=== PATIENT | female | born 1960 | race Caucasian/White ===

== ENCOUNTER 2018-11-08 05:26 | Emergency (ER) | payer OTHER, SELFPAY ==
[2018-11-08 05:35] VITALS: BP 152/82; PULSE 97; RESP 18; TEMP 36.2; O2SAT 98
--- NOTE | 2018-11-08 05:37 | DI.RAD.S_ITS ---
PROCEDURE: XR CHEST 1V INDICATIONS: pacemaker malfunction TECHNIQUE: One view of the chest was acquired. COMPARISON: [facility], CR, XR CHEST 2 VIEWS, 03/02/2018, 13:40. FINDINGS: Surgical changes and devices: Cardiac pacer is unchanged. Lungs and pleura: Lungs are clear. No pleural effusions or pneumothorax. Mediastinum: Mediastinal contours appear normal. Heart size is enlarged, as before. Bones and chest wall: No suspicious bony lesions. Overlying soft tissues appear unremarkable. IMPRESSION: No acute cardiopulmonary findings. Dictated by: Katerina Vuong M.D. on 11/08/2018 at 9:00 Approved by: Katerina Vuong M.D. on 11/08/2018 at 9:00
--- NOTE | 2018-11-08 05:43 | ED_ITS ---
HPI - Arrhythmia/Palpitations General Chief Complaint: Arrhythmia/Palpitations Stated Complaint: HAS PACEMAKER, HEART IS RACING Time Seen by Provider: 11/08/18 05:30 Source: patient Mode of arrival: ambulatory Limitations: no limitations History of Present Illness HPI narrative: 50-year-old female nonsmoker with history of bradycardia requiring a pacemaker presents with a chief complaint of heart racing with some anxiety and headache this morning. She states her heart rate got as high as 106 at home. She had a routine scheduled pacemaker check on the and they noted a tachyarrhythmia and has scheduled her for an upcoming appointment. This is the 2nd occurrence she has had an a week. She denies chest pain she is not dizzy nor weak or lightheaded. She denies any syncope or trauma. MD complaint: rapid heart beat and heart racing Onset (ago): hour(s) Duration: constant Severity: moderate Context: occurred during rest Arrhythmia history: pacemaker Associated symptoms: nausea and anxiety Review of Systems Constitutional Denies chills, Denies fever(s), Denies lethargy and Denies weakness Eyes Denies change in vision, Denies eye discharge, Denies irritation and Denies loss of vision ENT Ears, Nose, Mouth, and Throat: Denies change in voice, Denies neck pain and Denies sore throat Cardiovascular Denies chest pain, Denies irregular heart rhythm, Denies lightheadedness, Reports palpitations, Denies dyspnea, Denies dyspnea on exertion and Denies orthopnea Respiratory Denies cough, Denies dyspnea, Denies dyspnea on exertion and Denies wheezing Gastrointestinal Gastrointestinal: Denies abdominal pain, Denies change in bowel habits, Denies diarrhea, Denies nausea and Denies vomiting Genitourinary Denies hematuria, Denies flank pain, Denies urinary incontinence and Denies urinary urgency Musculoskeletal Denies neck pain Integumentary/Breasts Denies pruritus, Denies erythema, Denies rash and Denies wounds Neurologic Denies confusion, Denies loss of vision and Denies weakness Psychiatric Denies anxiety, Denies confusion, Denies depression, Denies homicidal ideation and Denies suicidal ideation Endocrine Reports palpitations Hematologic/Lymphatic Denies easy bruising Allergic/Immunologic Denies wheezing PFSH Social History Smoking Status: Never smoker Social History Smoking Status: Never smoker Exam Narrative Exam Narrative: GENERAL: A 58-year-old female, resting comfortably but obviously anxious HEAD: Atraumatic. Normocephalic. No temporal or scalp tenderness. EYES: Pupils equal round and reactive. Extraocular motions intact. No scleral icterus. No injection or drainage. ENT: Nose without bleeding, purulent drainage or septal hematoma. Throat without erythema, tonsillar hypertrophy or exudate. Uvula midline. Airway patent. NECK: Trachea midline. No JVD or lymphadenopathy. Supple, nontender, no meningeal signs. CARDIOVASCULAR: Regular rate and rhythm without murmurs, gallops, or rubs. RESPIRATORY: Clear to auscultation. Breath sounds equal bilaterally. No wheezes, rales, or rhonchi. GASTROINTESTINAL: Abdomen soft, non-tender, nondistended. No hepato- splenomegaly, or palpable masses. No guarding. EXTREMITIES: No clubbing, cyanosis, or edema. No joint tenderness, effusion, or edema noted. BACK: Nontender without deformity or crepitance. No flank tenderness. NEURO: AOx3. SKIN: No rash or erythema. Initial Vital Signs Initial Vital Signs: Vital Signs Temperature 97.2 F L 11/08/18 05:35 Pulse Rate 97 H 11/08/18 05:35 Respiratory Rate 18 11/08/18 05:35 Blood Pressure 152/82 H 11/08/18 05:35 Pulse Oximetry 98 11/08/18 05:35 Course Course Narrative: Pacer has been affectively interrogated and staff at [facility] has called and stated everything looks fine and well and pacer is functioning appropriately. Patient is feeling a bit anxious and still noting palpitations therefore Ativan has been ordered. Cardiology at [facility] consulted (Rich) whom is reviewing chart and will call back briefly Orders Ordered: ED Orders 11/08/18 05:37 XR chest 1V Stat EKG-12 Lead Stat 11/08/18 05:45 Basic Metabolic Panel Stat Complete Blood Count AUTO DIFF Stat Magnesium Stat Thyroid Stimulating Hormone Stat Troponin & CK Cardiac Panel Stat Sodium Chloride (Normal Saline 0.9%) 1,000 mls @ 150 mls/hr IV CONT DESHAWN Last Admin: 11/08/18 06:36 Dose: 150 mls/hr Discontinued Medications Lorazepam (Ativan) 0.5 mg IV NOW ONE Stop: 11/08/18 06:43 Last Admin: 11/08/18 06:50 Dose: 0.5 mg Consultations Consultation #1: Dr. Villanueva called back. Requests Atenolol be increased to 50mg daily and office will call tomorrow Vital Signs - 8 hr 11/08/18 05:35 11/08/18 06:20 11/08/18 06:47 Temperature 97.2 F L Pulse Rate 97 H 98 H 91 H Respiratory Rate 18 23 20 Blood Pressure 152/82 H Blood Pressure [Right Arm] 151/75 H 135/94 H Pulse Oximetry 98 100 95 MDM - Arrhythmia/Palpitations Differential Diagnosis Differential diagnosis: Likely palpitations and anxiety Lab Data Result diagrams: 11/08/18 05:45 11/08/18 05:45 Lab Results 11/08/18 11/08/18 11/08/18 Range/Units 05:45 05:45 05:45 WBC 8.7 (4.5-11.0) X10^3/uL RBC 4.66 (4.0-5.2) X10^6/uL Hgb 14.4 (12.0-16.0) g/dL Hct 41.4 (36-46) % MCV 89.0 (80-100) fL MCH 30.9 (26-34) PG MCHC 34.7 (30-36) % RDW 13.3 (11.6-14.8) % Plt Count 335 (150-400) X10^3/uL Neut % (Auto) 62.2 (50-75) % Lymph % (Auto) 29.1 (25-40) % Crenshaw % (Auto) 6.7 (3-14) % Eos % (Auto) 1.5 L (2-4) % Baso % (Auto) 0.5 (0-2) % Neut # (Auto) 5400 (4347-9107) /uL Lymph # (Auto) 2500 (2245-5472) /uL Crenshaw # (Auto) 600 (0-900) /uL Eos # (Auto) 100 (0-450) /uL Baso # (Auto) 0 (0-100) /uL Sodium 139 (137-145) mmol/L Potassium 3.9 (3.4-5.1) mmol/L Chloride 102 (98-107) mmol/L Carbon Dioxide 28 (22-32) mmol/L BUN 14 (7-17) mg/dL Creatinine 1.10 H (0.52-1.04) mg/dL Estimated GFR 51.0 L (>60) mL/min BUN/Creatinine Ratio 12.7 (6-22) Glucose 115 H (70-100) mg/dL Calcium 10.6 H (8.4-10.2) mg/dL Magnesium 2.0 (1.6-2.3) mg/dL Total Creatine Kinase 67 (30-135) U/L CK-MB (CK-2) TNP CK-MB (CK-2) Rel Index TNP Troponin I < 0.012 (0.01-0.034) ng/mL TSH 2.13 (0.47-4.68) uIU/mL ECG Data Attestation: I personally reviewed and interpreted this ECG as follows: Prior ECG tracings: available for review Interpretation: paced rhythm at 90 without obvious ischemia or ectopy Discharge Plan Departure Patient Disposition: Home Clinical Impression: Ventricular tachycardia Instructions: Arrhythmias Activity Restrictions/Additional Instructions: *You have been diagnosed with [ palpitations ] *What to do: *Please increase Atenolol from 25mg to 50mg daily (per Dr. Villanueva), otherwise take medications as directed *You should expect a call from cardiology tomorrow *Return to ER if you should have any new, worsening or concerning symptoms Referrals: Jacobo Chen MD [Primary Care Provider] -
[2018-11-08 05:56] LABS: Add Manual Diff / Slide Review NO; Basophils Absolute Auto 0 /uL (0-100); Basophils Percent Auto 0.5 % (0-2); Eosinophils Absolute Auto 100 /uL (0-450); Eosinophils Percent Auto 1.5 % (2-4); Hematocrit 41.4 % (36-46); Hemoglobin 14.4 g/dL (12.0-16.0); Lymphocytes Absolute Auto 2500 /uL (1100-4500); Lymphocytes Percent Auto 29.1 % (25-40); Mean Corpuscular HGB Conc 34.7 % (30-36); Mean Corpuscular Hemoglobin 30.9 PG (26-34); Monocytes Absolute Auto 600 /uL (0-900); Monocytes Percent Auto 6.7 % (3-14); Neutrophils Absolute Auto 5400 /uL (1500-7000); Neutrophils Percent Auto 62.2 % (50-75); Platelet Count 335 X10^3/uL (150-400); Red Blood Cell Count 4.66 X10^6/uL (4.0-5.2); Red Cell Distribution Width 13.3 % (11.6-14.8); White Blood Cell Count 8.7 X10^3/uL (4.5-11.0)
[2018-11-08 06:04] LABS: BUN Creatinine Ratio 12.7 (6-22); Blood Urea Nitrogen 14 mg/dL (7-17); Calcium 10.6 mg/dL (8.4-10.2); Carbon Dioxide 28 mmol/L (22-32); Chloride 102 mmol/L (98-107); Creatine Kinase 67 U/L (30-135); Glucose 115 mg/dL (70-100); HEMOLYSIS 28 (0-50); Potassium 3.9 mmol/L (3.4-5.1); Sodium 139 mmol/L (137-145)
[2018-11-08 06:16] LABS: Troponin I < 0.012 ng/mL (0.01-0.034)
--- NOTE | 2018-11-08 06:18 | PC.NURSE ---
Pacemaker interrogated with [place] device with success. Report currently being received via Fax. Dr Rayo aware.
[2018-11-08 06:20] VITALS: BP 151/75; PULSE 98; RESP 23; O2SAT 100
--- NOTE | 2018-11-08 06:25 | PC.NURSE ---
Phone call received from [facility] who stated that she's reviewed the pacemaker interrogation transmission and that it appears to be working fine, with no new recorded events.
[2018-11-08] MEDS: SODIUM CHLORIDE 0.9% 1,000 ML 150 ML IV (06:36)
[2018-11-08 06:47] VITALS: BP 135/94; PULSE 91; RESP 20; O2SAT 95
[2018-11-08] MEDS: LORazepam 2 MG/ML SYRINGE 0.5 MG IV (06:50)
[2018-11-08 06:54] LABS: Thyroid Stimulating Hormone 2.13 uIU/mL (0.47-4.68)
--- NOTE | 2018-11-08 06:55 | PC.NURSE ---
0.5mg ativan given per order from Dr Rayo for tearfulness and complaints of anxiety. Care reviewed with pt and emotional support given.
[2018-11-08 07:15] VITALS: BP 132/83; PULSE 99; RESP 18; O2SAT 97
--- NOTE | 2018-11-23 23:21 | PC.NURSE ---
Late Entry NS stop time 0700. 1 liter infused.
== END 2018-11-08 07:33 | disposition home or self-care (01) ==
PROVIDERS: Emergency Provider Emergency Medicine
DX: I47.2 Ventricular tachycardia (principal)
CPT/HCPCS: 36591; 71045; 80048; 82550; 83735; 84443; 84484; 85025; 93005; 93010; 96374; 99282; 99285; J2060

== ENCOUNTER → 2020-10-16 14:15 | Outpatient (CLI) | payer OTHER, SELFPAY ==
[2020-10-16 16:11] LABS: COVID19 -Nasal RAPID Negative (Negative)
== END ==
PROVIDERS: PCP Family Medicine; Visit Provider Physical Medicine & Rehabilitation
DX: Z20.822 Contact with and (suspected) exposure to COVID-19 (principal)
CPT/HCPCS: 87635; C9803

== ENCOUNTER 2020-10-17 12:40 | Outpatient (CLI) | payer OTHER, SELFPAY ==
[2020-10-17] VITALS (7 sets, daily range): BP systolic 76–118; BP diastolic 50–72; PULSE 69–75; RESP 12–18; TEMP 36.8; O2SAT 96–100
--- NOTE | 2020-10-17 12:41 | DI.RAD.S_ITS ---
PROCEDURE: PAIN L/SI FACET INJ/BLK 1STL INDICATIONS: SPONDYLOSIS COMPARISON: [facility], RG, XR LUMBOSACRAL SPINE 2-3 VIEWS, 09/06/2020, 13:28. FINDINGS: Fluoroscopic spot filming was performed to verify placement of spinal needles at the L2-L3, L4-L5, and L5-S1 level(s), as labeled on the films. Appropriate location(s) of the needle tip(s) was confirmed by injection of iodinated contrast. IMPRESSION: Intraprocedural examination within normal limits. Dictated by: Christopher Garland M.D. on 10/17/2020 at 14:07 Approved by: Christopher Garland M.D. on 10/17/2020 at 14:08
[2020-10-17] MEDS: MIDAZOLAM 5 MG/5 ML VIAL IV (13:55)
[2020-10-17] MEDS: fentaNYL 100 MCG/2 ML INJ 50 MCG IV (13:55)
[2020-10-17] MEDS: BUPIVACAINE 0.5% (PF) VIAL 2 ML INJ (14:04)
[2020-10-17] MEDS: IOPAMIDOL 15 ML VIAL 3 ML INJ (14:04)
[2020-10-17] MEDS: BETAMETHASONE 30 MG/5 ML MDV 12 MG INJ (14:05)
--- NOTE | 2020-10-17 14:09 | P.PCN_ITS ---
Date/Time/Diagnoses Date of procedure: 10/17/20 Time of procedure: 14:09 Pre-procedure diagnosis: 1. FACET ARTHROPATHY, 2. AXIAL LBP, 3. MULTILEVEL DDD Post-procedure diagnosis: same Procedure Notes Procedure: 1. FLUOROSCOPICALLY GUIDED CONTRAST CONTROLLED FACET JOINT INJECTIONS RIGHT L2/3, L4/5, L5/S1 Indications: The patient is referred by for treatment of Axial LBP Physician: Jose C Thompson Total Fluoroscopy time (seconds): 10 Total sedation minutes: 10 Complications: none Procedure in detail & Post-procedure care: FINDINGS Multilevel Facet Arthropathy with Clinically significant axial LBP DESCRIPTION OF PROCEDURE Fluoroscopically guided, contrast-controlled right L2/3, L4/5, L5/S1 facet joint injections. Following review of allergy and review of potential side effects and complications, including, but not necessarily limited to, infection, allergic reaction, local tissue breakdown, stroke, temporary or permanent nerve injury, paralysis, and possible , the patient indicated that the patient understood and agreed to proceed. An informed consent document was signed by the patient, witnessed by a nurse, and placed in the patient's chart. Additionally, other treatment options including medications, modalities, and physical therapy were reviewed with the patient. After review of previous anaesthesic history and IV conscious sedation the fritz ent was deemed safe to proceed with today?s procedure with IV conscious sedation as ASA class II designation. Safety time-out was performed to confirm patient ID, procedure to be performed and site of procedure. IV sedation was accomplished with a combination of 2mg of Versed and 50mcg of Fentanyl was administered by the RN after DO order, titrated to patient comfort during the course of the procedure while the patient remained responsive to all verbal commands. In the prone position, following sterile prep and drape of the lumbar region, the posterior aspect of the right L2/3, L4/5, L5/S1 facet joints were identified fluoroscopically. The skin was anesthetized via a 25-gauge 1.5-inch needle with 1% lidocaine solution into the corresponding facet joints. At this point, a 22- gauge 3.5-inch spinal needle was atraumatically introduced and advanced under fluoroscopic guidance into the corresponding facet joints. Following negative aspiration, injections of approximately 0.2-cc of Isovue 200 confirmed interarticular placement without vascular uptake. Radiological data, including multiple fluoroscopic views of the lumbosacral spine, reveal a spinal needle at the right L2/3, L4/5, L5/S1 facet joints. Subsequent views show flow of contrast material both superiorly and inferiorly within the joint space without vascular or intrathecal uptake. At this point, a total of 0.5cc including a mixture of 0.25cc Marcaine and 0.25cc betamethasone was injected without complication into each of the corresponding facet joints. The procedure tolerated the procedure well without signs or symptoms of complications prior to transfer to the recovery area continued monitoring without incident. The patient was then transferred to the recovery area where they were observed for an appropriate period of time after the injection. The patient reported a VAS score of 7 prior to the procedure and a post-procedure VAS of 0. POST OP INSTRUCTIONS The patient was provided a Pain Log to continue to record their response to the target-specific procedure prior to follow-up visit with their referring physician. Additionally, specific post-injection care instructions and a contact number to our office were provided if concerns arise regarding possible complications associated with the procedure are suspected.
== END 2020-10-17 14:30 | disposition home or self-care (01) ==
PROVIDERS: PCP Family Medicine; Referring Provider Physical Medicine & Rehabilitation; Visit Provider Physical Medicine & Rehabilitation
DX: M47.816 Spondylosis without myelopathy or radiculopathy, lumbar region (principal); M47.817 Spondylosis without myelopathy or radiculopathy, lumbosacral region; M54.5 Low back pain; M51.36 Other intervertebral disc degeneration, lumbar region; M51.37 Other intervertebral disc degeneration, lumbosacral region
CPT/HCPCS: 64493; 64494; 64495; 99152; J0702; J2250; J3010

== ENCOUNTER 2022-11-03 11:16 | Emergency (ER) | payer OTHER, SELFPAY ==
[2022-11-03 11:23] VITALS: BP 137/79; PULSE 67; RESP 16; TEMP 36.6; O2SAT 94; BMI 38.3
[2022-11-03] MEDS: PROPARACAINE 0.5% OPHTH SOL 1 DROPS EYE-LEFT (12:20)
[2022-11-03] MEDS: FLUORESCEIN 1 MG STRIP EYE-BOTH (12:20)
--- NOTE | 2022-11-03 13:09 | ED_ITS ---
HPI - Skin/Abscess/Foreign Bdy <Pretty Penn, [facility] - Last Filed: 11/03/22 20:13> General Chief complaint: Skin/Abscess/Foreign Body Stated complaint: possible shingles per pt Time Seen by Provider: 11/03/22 12:09 History of Present Illness HPI narrative: This is a 62-year-old female with history of shingles on her face over her left eye with progression this week and concern for intra-ocular involvement. Patient has been on valacyclovir 1 g X times a day for 7 days, states that she received the shingles vaccination 2 days ago as well, but denies fever chills, denies neuro changes, denies vision changes, denies field cut, states that she feels poorly but she does not feel so bad that she needs stay in the hospital. She has lesions to the left side of her forehead above her eye and on the upper eyelid does not extend to the lower eye or face, patient denies any drooping of her face other than her upper eyelid due to the edema. She denies any motor changes, states that her vaccines are up-to-date, she received her shingles vaccine 2 days ago and denies that she started feeling worse afterwards. She states that she is felt pretty bad most of this time but some of the forehead lesions are starting to crust. She states that some of the eyelid involvement is new and that is why she came in for evaluation today. Related Data Home Medications Medication Instructions Recorded Confirmed acetaminophen 325 mg tablet 325 mg PO ONCE PRN 09/13/20 09/13/20 (Tylenol) apixaban 5 mg tablet (Eliquis) 5 mg PO BID 09/13/20 09/13/20 atenolol 50 mg tablet 50 mg PO DAILY 09/13/20 09/13/20 atorvastatin 80 mg tablet 80 mg PO DAILY 09/13/20 09/13/20 clonazepam 1 mg tablet 1 mg PO DAILY 09/13/20 09/13/20 diphenoxylate-atropine 2.5 1 tab PO DAILY 09/13/20 09/13/20 mg-0.025 mg tablet escitalopram oxalate 20 mg tablet 20 mg PO DAILY 09/13/20 09/13/20 folic acid 1 mg tablet 1 mg PO DAILY 09/13/20 09/13/20 hydrochlorothiazide 12.5 mg capsule 12.5 mg PO DAILY 09/13/20 09/13/20 hydrocodone 10 mg-acetaminophen tab PO TID PRN 09/13/20 09/13/20 325 mg tablet hydrocodone 7.5 mg-acetaminophen 1 tab PO BEDTIME PRN 09/13/20 09/13/20 325 mg tablet iron PO 09/13/20 lisinopril 10 mg tablet 10 mg PO DAILY 09/13/20 09/13/20 omeprazole 20 mg capsule,delayed 20 mg PO DAILY 09/13/20 09/13/20 release Previous Rx's Medication Instructions Recorded gabapentin 100 mg capsule 100 mg PO TID PRN pain #30 caps 11/03/22 hydrocodone 5 mg-acetaminophen 325 1 tab PO TID PRN pain #14 tabs 11/03/22 mg tablet mupirocin 2 % topical ointment 1 applic topical DAILY #15 grams 11/03/22 Allergies Allergy/AdvReac Type Severity Reaction Status Date / Time No Known Drug Allergies Allergy Verified 09/07/20 10:44 Review of Systems <ANTON Sagastume - Last Filed: 11/03/22 20:13> Review of Systems ROS Unobtainable: All systems reviewed & are unremarkable except as noted in HPI and below Patient History <ANTON Sagastume - Last Filed: 11/03/22 20:13> Medical History Cervical spondylosis with radiculopathy Depression Dextroscoliosis DJD (degenerative joint disease), thoracic Facet arthropathy, lumbar Lumbar foraminal stenosis Morbid obesity due to excess calories Surgical History H/O: hysterectomy History of colonoscopy Hx of heart surgery S/P placement of cardiac pacemaker Family History Father Diabetes mellitus CKD (chronic kidney disease) Social History Smoking Status: Never smoker alcohol intake: current Smoking Status: Never smoker alcohol intake frequency: 0-2 drinks per day Substance Use Type: does not use Exam <ANTON Sagastume - Last Filed: 11/03/22 20:13> Narrative Exam Narrative: Reviewed vitals signs and nursing notes. General: cooperative, comfortable, in no acute distress, well groomed HEENT: symmetrical facial expressions, moist mucous membranes, eyebrow raise bilaterally is equal, patient able to puff cheeks out, smile, frown, shrug shoulders, and swallow without deficit or unilateral abnormality. She has erythema and some lesions to the left upper eyelid, no discharge or crusting present to the eyelid Fluorescein exam is significant for mild lesions medial to the iris and does not involve the cornea, approximately 2 mm x 1 mm area of fluorescein uptake, this was also visualized by Dr. Saenz who performed an exam as well. Patient does not have any vision deficit or field cut, EOMI, symmetrical face expressions and neuro exam completed without any focal neuro deficit. Neuro: normal speech and cognition, A&O x3, ambulatory, clear speech Psych: mental status is grossly normal, congruent mood, normal affect, pleasant and cooperative Initial Vital Signs Initial Vital Signs: Vital Signs Temperature 97.8 F 11/03/22 11:23 Pulse Rate 67 11/03/22 11:23 Respiratory Rate 16 11/03/22 11:23 Blood Pressure 137/79 11/03/22 11:23 Pulse Oximetry 94 11/03/22 11:23 Oxygen Delivery Method Room Air 11/03/22 11:23 <Alanna Mcintosh DO - Last Filed: 11/11/22 08:08> Initial Vital Signs Initial Vital Signs: Vital Signs Temperature 97.8 F 11/03/22 11:23 Pulse Rate 67 11/03/22 11:23 Respiratory Rate 16 11/03/22 11:23 Blood Pressure 137/79 11/03/22 11:23 Pulse Oximetry 94 11/03/22 11:23 Oxygen Delivery Method Room Air 11/03/22 11:23 Course <ANTON Sagastume - Last Filed: 11/03/22 20:13> Orders Ordered: Discontinued Medications Acetaminophen (Acetaminophen 325 Mg Tablet) 650 mg PO NOW ONE Stop: 11/03/22 13:34 Last Admin: 11/03/22 13:49 Dose: 650 mg Documented By: NR Hydrocodone Bitart/Acetaminophen (Hydrocodone/Acet 5/325 Tablet) 1 tab PO NOW ONE Stop: 11/03/22 13:33 Last Admin: 11/03/22 13:47 Dose: 1 tab Documented By: NR Acyclovir (Acyclovir 200 Mg Capsule) 800 mg PO NOW ONE Stop: 11/03/22 13:28 Last Admin: 11/03/22 13:49 Dose: 800 mg Documented By: NR Erythromycin (Erythromycin Ophth 1 Gm Oint) 1 applic EYE-LEFT NOW ONE Stop: 11/03/22 13:29 Last Admin: 11/03/22 13:49 Dose: 1 applic Documented By: NR Fluorescein Sodium (Fluorescein 1 Mg Strip) 1 mg EYE-BOTH NOW ONE Stop: 11/03/22 12:10 Last Admin: 11/03/22 12:20 Dose: 1 mg Documented By: SCOT Gabapentin (Gabapentin 100 Mg Capsule) 100 mg PO NOW ONE Stop: 11/03/22 13:33 Last Admin: 11/03/22 13:48 Dose: 100 mg Documented By: NR Ketorolac Tromethamine (Ketorolac 30 Mg/Ml Vial) 15 mg IM NOW ONE Stop: 11/03/22 13:33 Last Admin: 11/03/22 13:56 Dose: Not Given Documented By: NR Proparacaine HCl (Proparacaine 0.5% Ophth Odette) 1 drops EYE-LEFT NOW ONE Stop: 11/03/22 12:10 Last Admin: 11/03/22 12:20 Dose: 1 drop Documented By: SCOT Vital Signs Vital signs: Vital Signs - 8 hr 11/03/22 14:04 Pulse Rate 63 Respiratory Rate 12 Blood Pressure 118/82 Pulse Oximetry 94 Oxygen Delivery Method Room Air <Alanna Mcintosh DO - Last Filed: 11/11/22 08:08> Orders Ordered: Discontinued Medications Acetaminophen (Acetaminophen 325 Mg Tablet) 650 mg PO NOW ONE Stop: 11/03/22 13:34 Last Admin: 11/03/22 13:49 Dose: 650 mg Documented By: NR Hydrocodone Bitart/Acetaminophen (Hydrocodone/Acet 5/325 Tablet) 1 tab PO NOW ONE Stop: 11/03/22 13:33 Last Admin: 11/03/22 13:47 Dose: 1 tab Documented By: NR Acyclovir (Acyclovir 200 Mg Capsule) 800 mg PO NOW ONE Stop: 11/03/22 13:28 Last Admin: 11/03/22 13:49 Dose: 800 mg Documented By: NR Erythromycin (Erythromycin Ophth 1 Gm Oint) 1 applic EYE-LEFT NOW ONE Stop: 11/03/22 13:29 Last Admin: 11/03/22 13:49 Dose: 1 applic Documented By: NR Fluorescein Sodium (Fluorescein 1 Mg Strip) 1 mg EYE-BOTH NOW ONE Stop: 11/03/22 12:10 Last Admin: 11/03/22 12:20 Dose: 1 mg Documented By: SCOT Gabapentin (Gabapentin 100 Mg Capsule) 100 mg PO NOW ONE Stop: 11/03/22 13:33 Last Admin: 11/03/22 13:48 Dose: 100 mg Documented By: NR Ketorolac Tromethamine (Ketorolac 30 Mg/Ml Vial) 15 mg IM NOW ONE Stop: 11/03/22 13:33 Last Admin: 11/03/22 13:56 Dose: Not Given Documented By: NR Proparacaine HCl (Proparacaine 0.5% Ophth Odette) 1 drops EYE-LEFT NOW ONE Stop: 11/03/22 12:10 Last Admin: 11/03/22 12:20 Dose: 1 drop Documented By: SCOT Vital Signs Vital signs: Vital Signs - 8 hr 11/03/22 14:04 Pulse Rate 63 Respiratory Rate 12 Blood Pressure 118/82 Pulse Oximetry 94 Oxygen Delivery Method Room Air MDM - Skin/Abscess/Foreign Bdy <ANTON Sagastume - Last Filed: 11/03/22 20:13> MDM Narrative Medical decision making narrative: Chief Complaint: Herpes zoster with left eye involvement Independent historian: Patient Differential diagnoses include but are not limited to: Herpes zoster ophthalmicus, superimposed bacterial infection including conjunctivitis, scleritis iritis, periorbital cellulitis, dacryocystitis, herpes zoster without ophthalmic involvement I have independently reviewed the patient's vital signs and nursing notes as well as prior records if available. Pertinent exam findings, fluorescein exam shows mild dendritic lesions with 2-3 legs on the medial 03:00 o'clock aspect of her left eye medial to the iris/cornea. No corneal involvement Course of care: Paged Dr. Murray with [facility] at 13:15 for consult No return phone call from Ophthalmology, gave patient follow-up instructions. Will treat patient with acyclovir 800 mg 5 times daily x7 days with gabapentin for pain in addition to hydrocodone as needed. Patient has tolerated these medications in the past, she was also provided erythromycin ointment and taught how to use it and will treat 4 times daily for the next 5-7 days. She understands to follow-up with ophthalmology 1st thing tomorrow as able. Enco uraged to come back to the emergency department if she develops vision changes, severe worsening, any other changes related to her vision or neuro status including weakness, gait changes, fever chills or new change. Patient's spouse is here with her and understands these instructions. Social considerations that may affect disposition: none Questions are addressed and there is agreement with the plan and for follow-up. Patient is appropriate for outpatient management. MIPS: This encounter doesn't have any diagnosis' associated with MIPS criteria. <Alanna Mcintosh, DO - Last Filed: 11/11/22 08:08> [facility] Narrative Medical decision making narrative: Chief Complaint: Herpes zoster with left eye involvement Independent historian: Patient Differential diagnoses include but are not limited to: Herpes zoster ophthalmicus, superimposed bacterial infection including conjunctivitis, scleritis iritis, periorbital cellulitis, dacryocystitis, herpes zoster without ophthalmic involvement I have independently reviewed the patient's vital signs and nursing notes as well as prior records if available. Pertinent exam findings, fluorescein exam shows mild dendritic lesions with 2-3 legs on the medial 03:00 o'clock aspect of her left eye medial to the iris/cornea. No corneal involvement Course of care: Paged Dr. Murray with [facility] at 13:15 for consult No return phone call from Ophthalmology, gave patient follow-up instructions. Will treat patient with acyclovir 800 mg 5 times daily x7 days with gabapentin for pain in addition to hydrocodone as needed. Patient has tolerated these medications in the past, she was also provided erythromycin ointment and taught how to use it and will treat 4 times daily for the next 5-7 days. She understands to follow-up with ophthalmology 1st thing tomorrow as able. Encouraged to come back to the emergency department if she develops vision changes, severe worsening, any other changes related to her vision or neuro status including weakness, gait changes, fever chills or new change. Patient's spouse is here with her and understands these instructions. Social considerations that may affect disposition: none Questions are addressed and there is agreement with the plan and for follow-up. Patient is appropriate for outpatient management. MIPS: This encounter doesn't have any diagnosis' associated with MIPS criteria. Mank: Patient was also seen independently evaluated by myself she does appear to have shingles on the left side of her face, patient was evaluated possible uptake over the sclera not appreciated over the cornea and a dendritic lesion at the 3 o'clock position. Patient is placed on antiviral, gabapentin as needed pain given erythromycin ointment to prevent infection, there is no Ophthalmology available here today as it is the weekend would require transfer to [facility] and patient can be seen tomorrow outpatient ophthalmology for more definitive evaluation and next steps. Patient expresses understanding. We discussed return precautions. All questions answered. Discharge Plan Departure Patient Disposition: Home Clinical Impression: Herpes zoster with ophthalmic complication Qualifiers: Herpes zoster ocular complication detail: unspecified herpes zoster eye disease Qualified Code(s): B02.30 - Zoster ocular disease, unspecified Instructions: Shingles Activity Restrictions/Additional Instructions: *You have been diagnosed with complicated shingles infection involving your left eye. You will start acyclovir 800 mg 5 times a day for 7 days and use a topical ointment called erythromycin 4 times a day for at least the next 5 days. Please call and schedule follow-up with Dr. Murray for tomorrow, we have made a call out to him today to schedule your outpatient follow-up. They are good at seeing people 24 hours later, they are typically not available on the weekend and so it may take him a while to call back however he will have this note and I encourage you to call the office tomorrow morning. Please use mupirocin ointment for your forehead and anterior hairline to cover the skin outside of your eye and the erythromycin ointment inside your eye like the nurse showed you 4 times a day. Use the gabapentin 3 times a day as needed for nerve pain, hydrocodone as needed for severe pain and okay to take 650 mg of Tylenol with that. *What to do: *Please continue to take your regular medications as directed. [x ] New medication prescriptions sent to your pharmacy: [ [facility] [place]] [ ] New medication written as a paper prescription [ ] No new medications given *Please follow up with your primary care provider in 2-3 days, call for an appointment. Let them know you were seen in the Emergency Department and that we asked that you be seen for follow-up. We will electronically transmit a record of today's note if your PCP is in our system *If you do not have a primary care provider please contact [phone] to establish care with one of the [facility] primary care providers. *Return to Emergency Department if you should have any new, worsening, or brad rning symptoms, such as [fever greater than 101F, chills, worsening pain, persistent vomiting or other bothersome symptoms]. Prescriptions: New mupirocin 2 % ointment 1 applic topical DAILY Qty: 15 0RF gabapentin 100 mg capsule 100 mg PO TID PRN (Reason: pain) Qty: 30 0RF hydrocodone-acetaminophen 5-325 mg tablet 1 tab PO TID PRN (Reason: pain) Qty: 14 0RF No Action atenolol 50 mg tablet 50 mg PO DAILY hydrochlorothiazide 12.5 mg capsule 12.5 mg PO DAILY lisinopril 10 mg tablet 10 mg PO DAILY escitalopram oxalate 20 mg tablet 20 mg PO DAILY omeprazole 20 mg capsule,delayed release(DR/EC) 20 mg PO DAILY atorvastatin 80 mg tablet 80 mg PO DAILY Eliquis 5 mg tablet 5 mg PO BID folic acid 1 mg tablet 1 mg PO DAILY diphenoxylate-atropine 2.5-0.025 mg tablet 1 tab PO DAILY iron PO hydrocodone-acetaminophen 7.5-325 mg tablet 1 tab PO BEDTIME PRN acetaminophen [Tylenol] 325 mg tablet 325 mg PO ONCE PRN clonazepam 1 mg tablet 1 mg PO DAILY hydrocodone-acetaminophen 10-325 mg tablet PO TID PRN Referrals: Justo Murray MD [Physician] - As soon as possible Radha Alexandre DO [Primary Care Provider] - Stand Alone Forms: Patient Portal/API
[2022-11-03] MEDS: HYDROCODONE/ACET 5/325 TABLET 1 TAB PO (13:47)
[2022-11-03] MEDS: GABAPENTIN 100 MG CAPSULE PO (13:48)
[2022-11-03] MEDS: ERYTHROMYCIN OPHTH 1 GM OINT 1 APPLIC EYE-LEFT (13:49)
[2022-11-03] MEDS: ACYCLOVIR 200 MG CAPSULE 800 MG PO (13:49)
[2022-11-03] MEDS: ACETAMINOPHEN 325 MG TABLET 650 MG PO (13:49)
[2022-11-03 14:04] VITALS: BP 118/82; PULSE 63; RESP 12; O2SAT 94
== END 2022-11-03 14:08 | disposition home or self-care (01) ==
PROVIDERS: Emergency Provider Nurse Practitioner Critical Care Medicine; PCP Family Medicine
DX: B02.30 Zoster ocular disease, unspecified (principal)
CPT/HCPCS: 99283

== ENCOUNTER 2023-05-18 12:16 | Emergency (ER) | payer OTHER, SELFPAY ==
[2023-05-18] VITALS (11 sets, daily range): BP systolic 143–186; BP diastolic 72–95; PULSE 60–68; RESP 16; TEMP 36.4; O2SAT 91–97; BMI 40.7
--- NOTE | 2023-05-18 12:23 | ED_ITS ---
HPI - Abdominal Pain <Kevin Acosta PA-C - Last Filed: 05/18/23 15:19> General Chief Complaint: Abdominal Pain Stated Complaint: Lower L/abd and back pain, nausea, chills Time Seen by Provider: 05/18/23 12:20 History of Present Illness HPI narrative: This is a 62-year-old presenting to the emergency department due to left lower quadrant pain for the last couple of days. She also states that she is had some left-sided back pain. States that the pain also radiates down her left lower extremity. Reports some fevers and chills as well as nausea. Denies any vo miting. Denies any vaginal blood, discharge, pelvic pain, or any other concerning signs or symptoms. States this is she has a history of diverticulosis as well as chronic diarrhea. History of partial hysterectomy. No other abdominal surgeries. Denies dysuria, urinary frequency, or any other concerning signs or symptoms. Related Data Home Medications Medication Instructions Recorded Confirmed acetaminophen 325 mg tablet 325 mg PO ONCE PRN 09/13/20 09/13/20 (Tylenol) apixaban 5 mg tablet (Eliquis) 5 mg PO BID 09/13/20 09/13/20 atenolol 50 mg tablet 50 mg PO DAILY 09/13/20 09/13/20 atorvastatin 80 mg tablet 80 mg PO DAILY 09/13/20 09/13/20 clonazepam 1 mg tablet 1 mg PO DAILY 09/13/20 09/13/20 diphenoxylate-atropine 2.5 1 tab PO DAILY 09/13/20 09/13/20 mg-0.025 mg tablet escitalopram oxalate 20 mg tablet 20 mg PO DAILY 09/13/20 09/13/20 folic acid 1 mg tablet 1 mg PO DAILY 09/13/20 09/13/20 hydrochlorothiazide 12.5 mg capsule 12.5 mg PO DAILY 09/13/20 09/13/20 hydrocodone 10 mg-acetaminophen tab PO TID PRN 09/13/20 09/13/20 325 mg tablet hydrocodone 7.5 mg-acetaminophen 1 tab PO BEDTIME PRN 09/13/20 09/13/20 325 mg tablet iron PO 09/13/20 lisinopril 10 mg tablet 10 mg PO DAILY 09/13/20 09/13/20 omeprazole 20 mg capsule,delayed 20 mg PO DAILY 09/13/20 09/13/20 release Previous Rx's Medication Instructions Recorded gabapentin 100 mg capsule 100 mg PO TID PRN pain #30 caps 11/03/22 hydrocodone 5 mg-acetaminophen 325 1 tab PO TID PRN pain #14 tabs 11/03/22 mg tablet mupirocin 2 % topical ointment 1 applic topical DAILY #15 grams 11/03/22 cyclobenzaprine 10 mg tablet 10 mg PO TID PRN muscle spasm #20 05/18/23 tabs Allergies Allergy/AdvReac Type Severity Reaction Status Date / Time No Known Drug Allergies Allergy Verified 09/07/20 10:44 Review of Systems <Kevin Acosta PA-C - Last Filed: 05/18/23 15:19> Review of Systems Narrative: GENERAL: Reports fevers and chills Denies , fatigue, malaise, sweats. HEENT: Denies sinus pain, ear pain, sore throat, difficulty swallowing, dizziness. RESPIRATORY: Denies dyspnea, cough, wheezing, hemoptysis, sputum. CARDIOVASCULAR: Denies chest pain, palpitations, orthopnea, edema, GASTROINTESTINAL: Reports abdominal pain, nausea denies, vomiting, , diarrhea, constipation, melena. : Denies dysuria, frequency, incontinence, hematuria, urinary retention. MUSCULOSKELETAL: denies weakness, joint pain, or bony pain SKIN: Denies rash, skin lesions, or other NEUROLOGIC: Denies weakness, headache, numbness, change in speech, confusion, seizures, incoordination. PSYCHIATRIC: No concerning psychosocial issues. 12 point review of systems is negative except for those stated above Patient History <Kevin Acosta PA-C - Last Filed: 05/18/23 15:19> Medical History Cervical spondylosis with radiculopathy Depression Dextroscoliosis DJD (degenerative joint disease), thoracic Facet arthropathy, lumbar Lumbar foraminal stenosis Morbid obesity due to excess calories Surgical History H/O: hysterectomy History of colonoscopy Hx of heart surgery S/P placement of cardiac pacemaker Family History Father Diabetes mellitus CKD (chronic kidney disease) Social History Smoking Status: Never smoker alcohol intake: current Smoking Status: Never smoker alcohol intake frequency: 0-2 drinks per day Substance Use Type: does not use Exam <Kevin Acosta PA-C - Last Filed: 05/18/23 15:19> Narrative Exam Narrative: GENERAL: Well-developed patient, in mild distress. HEAD: Atraumatic. Normocephalic. EYES: Pupils equal round and reactive. Extraocular motions intact. No scleral icterus. No injection or drainage. ENT: Nose without bleeding, purulent drainage. Throat without erythema, tonsillar hypertrophy or exudate. Airway patent. NECK: Trachea midline. Non tender CARDIOVASCULAR: Regular rate and rhythm without murmurs, gallops, or rubs. RESPIRATORY: Clear to auscultation. Breath sounds equal bilaterally. No wheezes, rales, or rhonchi. GASTROINTESTINAL: Left lower quadrant and suprapubic tenderness to palpation. EXTREMITIES: No edema or joint tenderness. BACK: Nontender without deformity or crepitance. No flank tenderness. NEURO: AOx3. SKIN: No rash or erythema of visible areas Initial Vital Signs Initial Vital Signs: Vital Signs Pulse Rate 67 05/18/23 12:23 Pulse Oximetry 94 05/18/23 12:23 <Lynette Sommer DO - Last Filed: 05/19/23 07:49> Initial Vital Signs Initial Vital Signs: Vital Signs Pulse Rate 67 05/18/23 12:23 Pulse Oximetry 94 05/18/23 12:23 Course <Kevin Acosta PA-C - Last Filed: 05/18/23 15:19> Orders Ordered: Discontinued Medications Ketorolac Tromethamine (Ketorolac 30 Mg/Ml Vial) 15 mg IM NOW ONE Stop: 05/18/23 15:15 Last Admin: 05/18/23 15:25 Dose: Not Given Documented By: JUSTINO Ketorolac Tromethamine (Ketorolac 30 Mg/Ml Vial) 15 mg IV NOW ONE Stop: 05/18/23 15:26 Last Admin: 05/18/23 15:26 Dose: 15 mg Documented By: JUSTINO Morphine Sulfate (Morphine 4 Mg/Ml Inj) 4 mg IV NOW ONE Stop: 05/18/23 13:33 Last Admin: 05/18/23 13:40 Dose: 4 mg Documented By: JOSEPHINE Ondansetron HCl (Ondansetron 4 Mg Odt) 4 mg PO NOW PRN PRN Reason: Nausea And Vomiting Ondansetron HCl (Ondansetron 4 Mg/2 Ml Inj) 4 mg IV NOW PRN PRN Reason: Nausea And Vomiting Ondansetron HCl (Ondansetron 4 Mg/2 Ml Inj) 4 mg IV NOW ONE Stop: 05/18/23 13:33 Last Admin: 05/18/23 13:40 Dose: 4 mg Documented By: NR Vital Signs Vital signs: Vital Signs - 8 hr 05/18/23 12:25 Temperature 97.6 F Pulse Rate 68 Respiratory Rate 16 Blood Pressure 186/95 H Pulse Oximetry 97 Oxygen Delivery Method Room Air <Lynette Sommer DO - Last Filed: 05/19/23 07:49> Orders Ordered: Discontinued Medications Ketorolac Tromethamine (Ketorolac 30 Mg/Ml Vial) 15 mg IM NOW ONE Stop: 05/18/23 15:15 Last Admin: 05/18/23 15:25 Dose: Not Given Documented By: JUSTINO Ketorolac Tromethamine (Ketorolac 30 Mg/Ml Vial) 15 mg IV NOW ONE Stop: 05/18/23 15:26 Last Admin: 05/18/23 15:26 Dose: 15 mg Documented By: JUSTINO Morphine Sulfate (Morphine 4 Mg/Ml Inj) 4 mg IV NOW ONE Stop: 05/18/23 13:33 Last Admin: 05/18/23 13:40 Dose: 4 mg Documented By: JOSEPHINE Ondansetron HCl (Ondansetron 4 Mg Odt) 4 mg PO NOW PRN PRN Reason: Nausea And Vomiting Ondansetron HCl (Ondansetron 4 Mg/2 Ml Inj) 4 mg IV NOW PRN PRN Reason: Nausea And Vomiting Ondansetron HCl (Ondansetron 4 Mg/2 Ml Inj) 4 mg IV NOW ONE Stop: 05/18/23 13:33 Last Admin: 05/18/23 13:40 Dose: 4 mg Documented By: NR Vital Signs Vital signs: Vital Signs - 8 hr 05/18/23 12:25 Temperature 97.6 F Pulse Rate 68 Respiratory Rate 16 Blood Pressure 186/95 H Pulse Oximetry 97 Oxygen Delivery Method Room Air MDM - Abdominal Pain <Kevin Acosta PA-C - Last Filed: 05/18/23 15:19> Lab Data 05/18/23 12:29 05/18/23 12:29 Labs: Lab Results 05/18/23 05/18/23 05/18/23 Range/Units 12:29 12:29 12:29 WBC 7.1 (4.5-11.0) X10^3/uL RBC 4.37 (4.0-5.2) X10^6/uL Hgb 13.6 (12.0-16.0) g/dL Hct 39.6 (36-46) % MCV 90.8 (80-100) fL MCH 31.0 (26-34) PG MCHC 34.2 (30-36) % RDW 14.5 (11.6-14.8) % Plt Count 343 (150-400) X10^3/uL Neut % (Auto) 66.0 (50-75) % Lymph % (Auto) 24.8 L (25-40) % Cooke % (Auto) 7.1 (3-14) % Eos % (Auto) 1.7 L (2-4) % Baso % (Auto) 0.4 (0-2) % Neut # (Auto) 4700 (2136-1192) /uL Lymph # (Auto) 1800 (1191-2205) /uL Cooke # (Auto) 500 (0-900) /uL Eos # (Auto) 100 (0-450) /uL Baso # (Auto) 0 (0-100) /uL PT 15.2 H (10.1-12.7) SECONDS INR 1.3 (0.9-1.3) Sodium 137 (137-145) mmol/L Potassium 4.3 (3.4-5.1) mmol/L Chloride 105 (98-107) mmol/L Carbon Dioxide 27 (22-32) mmol/L BUN 10 (7-17) mg/dL Creatinine 0.68 (0.52-1.04) mg/dL Estimated GFR > 60 (>60) mL/min BUN/Creatinine Ratio 14.7 (6-22) Glucose 129 H (80-110) mg/dL Calcium 10.8 H (8.4-10.2) mg/dL Total Bilirubin 0.5 (0.2-1.3) mg/dL AST 23 (14-36) IU/L ALT 20 (<35) IU/L Alkaline Phosphatase 100 (38-126) U/L Total Protein 7.3 (6.3-8.2) g/dL Albumin 4.3 (3.5-5.0) g/dL Globulin 3.0 (1.7-4.1) g/dL Albumin/Globulin Ratio 1.4 (1.0-2.8) Lipase 62 (23-300) U/L Point of care testing: Urine Dip Bedside Urine Glucose Negative Bedside Urine Bilirubin - Negative Bedside Urine Ketone - Negative Urine Specific [place] 1.010 Bedside Urine Occult Blood - Negative Bedside Urine pH 6.0 Bedside Urine Protein - Negative Bedside Urine Urobilinogen - Negative Bedside Urine Nitrite - Negative Bedside Urine Leukocytes - Negative Esterase Imaging Data CT scan - abdomen/pelvis: Radiologist's Impression: [address] [address] [address] Scan Report Signed Patient: Olivia Traylor MR#: [id number] : 1960 Acct:[id number] Age/Sex: 62 / F Date of Service: 05/18/23 Loc: ED Accession Number: [id number] ?? Procedure: CT abdomen pelvis w con Ordering Provider: Kevin Acosta P.A-C PROCEDURE:? CT ABDOMEN PELVIS W CON ? INDICATIONS:? LLQ pain ? TECHNIQUE:? After the administration of intravenous contrast, axial sections acquired from the lung bases to the pubic symphysis.? Coronal and sagittal reformats were performed.? For radiation dose reduction, the following was used:? automated exposure control, adjustment of mA and/or kV according to patient size.? ? COMPARISON:? [facility], CT, ABDOMEN/PELVIS WITH CONTRAST, 11/08/2014, 22:20. ? FINDINGS: ? Lower thorax: The lung bases are clear.? Heart size within normal limits.? Pacer wires present.? Large hiatal hernia noted. ? Liver:? Normal in size and attenuation. No contour deformity present. ? Biliary system:? No calcified cholelithiasis or pericholecystic inflammation.? No intra or extrahepatic bile duct dilatation. ? Pancreas:? Unremarkable without mass or inflammation evident. ? Spleen:? Normal in size and density. ? Adrenals:? Normal morphology and density. ? Reproductive system:? Unremarkable as visualized. ? Urinary system:? Normal renal size and attenuation. No renal calculi, hydronephrosis, or solid mass present.? Urinary bladder unremarkable. ? Gastrointestinal system:? The bowel is unremarkable without evidence of bowel obstruction or inflammation. The stomach appears unremarkable.? Multiple diverticula arise from the colon without evidence of diverticulitis. ? ? Appendix:? No findings to suggest acute appendicitis. ? Peritoneal spaces:? No mesenteric or retroperitoneal adenopathy.? No free air.? No free fluid.? ? Vasculature:? The IVC, aorta and iliac vasculature are unremarkable. ? Abdominal wall:? Abdominal wall intact without evidence of ventral or inguinal hernias. ? Musculoskeletal:? Normal bone mineralization.? Degenerative disc disease and arthropathy noted in lower lumbar spine.? No acute fractures.? ? IMPRESSION: ? 1. Diverticulosis without evidence of diverticulitis, abscess or obstruction. ? 2. Large hiatal hernia ? Approved by: Brooks De La Rosa M.D. on 05/18/2023 at 13:19? MDM Narrative Medical decision making narrative: MDM * differential diagnosis includes but not limited to diverticulitis, diverticulosis, sciatica, lumbosacral strain * Prior records reviewed: Patient was here 7 months ago due to herpes zoster with ophthalmic complication. Also has history of hysterectomy, and cardiac pacemaker placement. [facility] ophthalmology was consulted patient was treated with acyclovir. Patient was instructed to follow up with Ophthalmology. * My lab interpretation: CBC unremarkable no leukocytosis. CMP unremarkable. Urinalysis showed no evidence of UTI * My imgaing interpretation: CT abdomen and pelvis came back positive for diverticulosis which the patient was aware of * Clinical Decision Rules/Scores evaluated: None * Independent discussions with: None ED Course: This is a 62-year-old female presents emergency department due to reports of somewhat poorly described left lower quadrant abdominal pain as well as left lumbar paraspinal pain with radiation down her left lower extremity. Patient did present with tenderness to palpation of the left lower quadrant it CT abdomen and pelvis was ordered which was unremarkable other than diverticulitis and a hiatal hernia that the patient is aware of and is chronic for her. Patient's description of the pain radiating down the left lower extremities consistent with sciatica we will treat for this. Lab work unremarkable otherwise. Shared Decision Making: Discussed plan with patient who is comfortable with the plan Social Considerations: None Disposition: Discharged to home <Lynette Gomesnick, DO - Last Filed: 05/19/23 07:49> Lab Data Labs: Lab Results 05/18/23 05/18/23 05/18/23 Range/Units 12:29 12:29 12:29 WBC 7.1 (4.5-11.0) X10^3/uL RBC 4.37 (4.0-5.2) X10^6/uL Hgb 13.6 (12.0-16.0) g/dL Hct 39.6 (36-46) % MCV 90.8 (80-100) fL MCH 31.0 (26-34) PG MCHC 34.2 (30-36) % RDW 14.5 (11.6-14.8) % Plt Count 343 (150-400) X10^3/uL Neut % (Auto) 66.0 (50-75) % Lymph % (Auto) 24.8 L (25-40) % Cooke % (Auto) 7.1 (3-14) % Eos % (Auto) 1.7 L (2-4) % Baso % (Auto) 0.4 (0-2) % Neut # (Auto) 4700 (9508-8457) /uL Lymph # (Auto) 1800 (5803-6919) /uL Cooke # (Auto) 500 (0-900) /uL Eos # (Auto) 100 (0-450) /uL Baso # (Auto) 0 (0-100) /uL PT 15.2 H (10.1-12.7) SECONDS INR 1.3 (0.9-1.3) Sodium 137 (137-145) mmol/L Potassium 4.3 (3.4-5.1) mmol/L Chloride 105 (98-107) mmol/L Carbon Dioxide 27 (22-32) mmol/L BUN 10 (7-17) mg/dL Creatinine 0.68 (0.52-1.04) mg/dL Estimated GFR > 60 (>60) mL/min BUN/Creatinine Ratio 14.7 (6-22) Glucose 129 H (80-110) mg/dL Calcium 10.8 H (8.4-10.2) mg/dL Total Bilirubin 0.5 (0.2-1.3) mg/dL AST 23 (14-36) IU/L ALT 20 (<35) IU/L Alkaline Phosphatase 100 (38-126) U/L Total Protein 7.3 (6.3-8.2) g/dL Albumin 4.3 (3.5-5.0) g/dL Globulin 3.0 (1.7-4.1) g/dL Albumin/Globulin Ratio 1.4 (1.0-2.8) Lipase 62 (23-300) U/L Point of care testing: Urine Dip Bedside Urine Glucose Negative Bedside Urine Bilirubin - Negative Bedside Urine Ketone - Negative Urine Specific [place] 1.010 Bedside Urine Occult Blood - Negative Bedside Urine pH 6.0 Bedside Urine Protein - Negative Bedside Urine Urobilinogen - Negative Bedside Urine Nitrite - Negative Bedside Urine Leukocytes - Negative Esterase ECG Data Interpretation: Mireyanick Paced rhythm rate 61 AK interval 146 QRS 152 QTC 499 similar to prior Discharge Plan Departure Patient Disposition: Home Clinical Impression: Sciatica Instructions: DI for Sciatica Activity Restrictions/Additional Instructions: Thank you for coming to the [facility] Emergency Department today. Your CT abdomen and pelvis showed no organ abnormalities other than diverticulosis and hiatal hernia that you are aware of. I suspect your pain is being caused by something called sciatica. This is when a sciatic nerve in your left buttock and lumbar area gets irritated causing some pain that radiates down her left lower extremity. The Toradol giving today should help. You may also use ibuprofen and Tylenol [id number] as needed for pain. I recommend you speak with the primary care provider for long-term management of the sciatica like pain. Please also use the muscle relaxants has not may help with your pain. Be careful as they make make you feel a bit ?woozy?. 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 Please follow up with your primary care provider within a week if your symptoms continue. If you do not have a primary care provider please contact the [facility] Res ource line at [phone]. They will ask some questions about your medical history and help you get set up with a provider in the community. Prescriptions: New cyclobenzaprine 10 mg tablet 10 mg PO TID PRN (Reason: muscle spasm) Qty: 20 0RF No Action mupirocin 2 % ointment 1 applic topical DAILY Qty: 15 0RF gabapentin 100 mg capsule 100 mg PO TID PRN (Reason: pain) Qty: 30 0RF hydrocodone-acetaminophen 5-325 mg tablet 1 tab PO TID PRN (Reason: pain) Qty: 14 0RF atenolol 50 mg tablet 50 mg PO DAILY hydrochlorothiazide 12.5 mg capsule 12.5 mg PO DAILY lisinopril 10 mg tablet 10 mg PO DAILY escitalopram oxalate 20 mg tablet 20 mg PO DAILY omeprazole 20 mg capsule,delayed release(DR/EC) 20 mg PO DAILY atorvastatin 80 mg tablet 80 mg PO DAILY Eliquis 5 mg tablet 5 mg PO BID folic acid 1 mg tablet 1 mg PO DAILY diphenoxylate-atropine 2.5-0.025 mg tablet 1 tab PO DAILY iron PO hydrocodone-acetaminophen 7.5-325 mg tablet 1 tab PO BEDTIME PRN acetaminophen [Tylenol] 325 mg tablet 325 mg PO ONCE PRN clonazepam 1 mg tablet 1 mg PO DAILY hydrocodone-acetaminophen 10-325 mg tablet PO TID PRN Referrals: Radha Alxeandre DO [Primary Care Provider] - Stand Alone Forms: Patient Portal/API <Lynette Sommer DO - Last Filed: 05/19/23 07:49> Cosign ED Attending Melyssa Attestation: I was immediately available in the department for consultation. Documentation has been reviewed.
--- NOTE | 2023-05-18 12:31 | DI.CT.S_ITS ---
PROCEDURE: CT ABDOMEN PELVIS W CON INDICATIONS: LLQ pain TECHNIQUE: After the administration of intravenous contrast, axial sections acquired from the lung bases to the pubic symphysis. Coronal and sagittal reformats were performed. For radiation dose reduction, the following was used: automated exposure control, adjustment of mA and/or kV according to patient size. COMPARISON: [facility], CT, ABDOMEN/PELVIS WITH CONTRAST, 11/08/2014, 22:20. FINDINGS: Lower thorax: The lung bases are clear. Heart size within normal limits. Pacer wires present. Large hiatal hernia noted. Liver: Normal in size and attenuation. No contour deformity present. Biliary system: No calcified cholelithiasis or pericholecystic inflammation. No intra or extrahepatic bile duct dilatation. Pancreas: Unremarkable without mass or inflammation evident. Spleen: Normal in size and density. Adrenals: Normal morphology and density. Reproductive system: Unremarkable as visualized. Urinary system: Normal renal size and attenuation. No renal calculi, hydronephrosis, or solid mass present. Urinary bladder unremarkable. Gastrointestinal system: The bowel is unremarkable without evidence of bowel obstruction or inflammation. The stomach appears unremarkable. Multiple diverticula arise from the colon without evidence of diverticulitis. Appendix: No findings to suggest acute appendicitis. Peritoneal spaces: No mesenteric or retroperitoneal adenopathy. No free air. No free fluid. Vasculature: The IVC, aorta and iliac vasculature are unremarkable. Abdominal wall: Abdominal wall intact without evidence of ventral or inguinal hernias. Musculoskeletal: Normal bone mineralization. Degenerative disc disease and arthropathy noted in lower lumbar spine. No acute fractures. IMPRESSION: 1. Diverticulosis without evidence of diverticulitis, abscess or obstruction. 2. Large hiatal hernia Approved by: Brooks De La Rosa M.D. on 05/18/2023 at 13:19
[2023-05-18 12:45] LABS: INR 1.3 (0.9-1.3); Prothrombin Time 15.2 SECONDS (10.1-12.7)
[2023-05-18 12:49] LABS: Alanine Aminotransferase 20 IU/L (<35); Albumin 4.3 g/dL (3.5-5.0); Albumin Globulin Ratio 1.4 (1.0-2.8); Alkaline Phosphatase 100 U/L (38-126); Aspartate Aminotransferase 23 IU/L (14-36); BUN Creatinine Ratio 14.7 (6-22); Bilirubin Total 0.5 mg/dL (0.2-1.3); Blood Urea Nitrogen 10 mg/dL (7-17); Calcium 10.8 mg/dL (8.4-10.2); Carbon Dioxide 27 mmol/L (22-32); Chloride 105 mmol/L (98-107); Estimated Glomerular Filt Rate > 60 mL/min (>60); Glucose 129 mg/dL (80-110); HEMOLYSIS < 15 (0-50); Lipase 62 U/L (23-300); Potassium 4.3 mmol/L (3.4-5.1); Sodium 137 mmol/L (137-145); Total Protein 7.3 g/dL (6.3-8.2)
[2023-05-18 12:50] LABS: Add Manual Diff / Slide Review NO; Basophils Absolute Auto 0 /uL (0-100); Basophils Percent Auto 0.4 % (0-2); Eosinophils Absolute Auto 100 /uL (0-450); Eosinophils Percent Auto 1.7 % (2-4); Hematocrit 39.6 % (36-46); Hemoglobin 13.6 g/dL (12.0-16.0); Lymphocytes Absolute Auto 1800 /uL (1100-4500); Lymphocytes Percent Auto 24.8 % (25-40); Mean Corpuscular HGB Conc 34.2 % (30-36); Mean Corpuscular Volume 90.8 fL (80-100); Monocytes Absolute Auto 500 /uL (0-900); Monocytes Percent Auto 7.1 % (3-14); Neutrophils Absolute Auto 4700 /uL (1500-7000); Platelet Count 343 X10^3/uL (150-400); Red Blood Cell Count 4.37 X10^6/uL (4.0-5.2); Red Cell Distribution Width 14.5 % (11.6-14.8); White Blood Cell Count 7.1 X10^3/uL (4.5-11.0)
[2023-05-18] MEDS: MORPHINE 4 MG/ML INJ IV (13:40)
[2023-05-18] MEDS: ONDANSETRON 4 MG/2 ML INJ IV (13:40)
[2023-05-18] MEDS: KETOROLAC 30 MG/ML VIAL 15 MG IV (15:26)
== END 2023-05-18 15:49 | disposition home or self-care (01) ==
PROVIDERS: Emergency Provider Physician Assistant Medical; PCP Family Medicine
DX: M54.42 Lumbago with sciatica, left side (principal); R10.32 Left lower quadrant pain; Z79.01 Long term (current) use of anticoagulants; Z79.899 Other long term (current) drug therapy
CPT/HCPCS: 36415; 74177; 80053; 81003; 83690; 85025; 85610; 93005; 93010; 96374; 96375; 99284; J1885; J2270; J2405; Q9967